=== PATIENT | female | born 1995 | race Hispanic/Latino ===

== ENCOUNTER 2025-01-11 16:28 | Emergency (ER) | payer BC ==
--- OUTSIDE RECORDS SUMMARY | 2025-01-11 16:31 | XMS REPORT | Continuity of Care Document ---
Author Name Unknown Address [address] [place] [address] [facility] Address [address] [place] [address] Care Team Providers Care Telephone Directory Deliverer Name Role Phone Pcp, Patient Does Not Have A Primary Care Physic merle Campaigns, Generic Provider Attending Clinician Unavailable Annabelle Tinoco Attending Clinician [phone] Unknown, Attending Attending Clinician Unavailab ANNABELLE Schofield Attending Clinician Unavailabl e Payers Payer Name Policy Type Policy Number Effective Date Expirati on Date Source Problems Condition Name Condition Details Condition Category Status Onset Date Resolution Date Last Treatment Date Treating Clinician Comments Source Candidiasi s of vagina Candidiasi s of Vagina Problem Active 16 00:00: 00 [facility] Dysuria Dysuria Problem Active 12-19 00:00: 00 [place] [facility] Acute urinary tract infection Acute Urinary Tract Infection Problem Active 12-19 00:00: 00 [facility] Constipati on Constipati on Problem Active 07-06 00:00: 00 [facility] Impacted cerumen in left ear Impacted Cerumen in Left Ear Problem Active 07 00:00: 00 [place] [facility] Essential hypertensi on Essential Hypertensi on Problem Active 06-10 00:00: 00 [facility] Dizziness Dizziness Problem Active - 00:00: 00 [place] [facility] Headache Headache Problem Active 06-10 00:00: 00 [facility] Acute sinusitis Acute Sinusitis Problem Active 2023-04 00:00: 00 [facility] Cough Cough Problem Active 2023-04 00:00: 00 [facility] Allergies, Adverse Reactions, Alerts Allergy Name Allergy Type Status Severity Reaction(s) Onset Date Inactive Date Treating Clinician Comments Source NO KNOWN ALLERGIE S Drug Class Active [facility] Social History Social Habit Start Date Stop Date Quantity Comments Source Sexual orientation U [facility] Sex assigned at 1995 00:00:00 1995 00:00:00 [facility] Smoking Status Start Date Stop Date Source Tobacco smoking consumption unknown [facility] Medications Ordered Medication Name Filled Medication Name Start Date Stop Date Current Medication? Ordering Clinician Indication Dosage Frequency Signature (SIG) Comments Components Source tamsulosin 0.4 mg capsule Take 1 capsule every day by oral route for 7 days. tamsulosin 0.4 mg capsule Take 1 capsule every day by oral route for 7 days. No 1capsul e(s) Q1D tamsulosin 0.4 mg capsule Take 1 capsule every day by oral route for 7 days. [facility] multivitami n Take 1 daily multivitami n Take 1 daily No multivitam in Take 1 daily [facility] losartan 100 mg tablet TAKE 1 TABLET BY MOUTH EVERY DAY FOR 30 DAYS losartan 100 mg tablet TAKE 1 TABLET BY MOUTH EVERY DAY FOR 30 DAYS No 1 Q1D losartan 100 mg tablet TAKE 1 TABLET BY MOUTH EVERY DAY FOR 30 DAYS [facility] albuterol sulfate HFA 90 mcg/actuati on aerosol inhaler INHALE 2 PUFFS EVERY 4 HOURS BY MOUTH albuterol sulfate HFA 90 mcg/actuati on aerosol inhaler INHALE 2 PUFFS EVERY 4 HOURS BY MOUTH No 2puff(s ) Q4H albuterol sulfate HFA 90 mcg/actuat ion aerosol inhaler INHALE 2 PUFFS EVERY 4 HOURS BY MOUTH [facility] Wegovy 1.7 mg/0.75 mL subcutaneou s pen injector Inject 1.7 mg by subcutaneou s route. Wegovy 1.7 mg/0.75 mL subcutaneou s pen injector Inject 1.7 mg by subcutaneou s route. No 1.7mg Wegovy 1.7 mg/0.75 mL subcutaneo us pen injector Inject 1.7 mg by subcutaneo us route. [facility] Immunizations Ordered Immunization Name Filled Immunization Name Date Status Comments Source Tdap Tdap Unknown Completed [facility] Vital Signs Vital Name Observation Time Observation Value Comments S ource BMI (Body Mass Index) 2025-01-10 00:00:00 36.8 kg/m2 [facility] BP Systolic 2025-01-10 00:00:00 151 mm[Hg] [facility] Body Weight 2025-01-10 00:00:00 4834 [oz_av] [facility] BP Diastolic 2025-01-10 00:00:00 82 mm[Hg] [facility] Height 2025-01-10 00:00:00 76 [in_i] [facility] BP Diastolic 2024-12-27 00:00:00 73 mm[Hg] [facility] BMI (Body Mass Index) 2024-12-27 00:00:00 37.5 kg/m2 [facility] Height 2024-12-27 00:00:00 76 [in_i] [facility] BP Systolic 2024-12-27 00:00:00 141 mm[Hg] [facility] Body Weight 2024-12-27 00:00:00 4934 [oz_av] [facility] Height 2024-12-19 00:00:00 76 [in_i] [facility] BP Diastolic 2024-12-19 00:00:00 78 mm[Hg] [facility] BP Systolic 2024-12-19 00:00:00 149 mm[Hg] [facility] Body Weight 2024-12-19 00:00:00 4898 [oz_av] [facility] BMI (Body Mass Index) 2024-12-19 00:00:00 37.3 kg/m2 [facility] BMI (Body Mass Index) 2024-12-16 00:00:00 37.3 kg/m2 [facility] Height 2024-12-16 00:00:00 76 [in_i] [facility] BP Diastolic 2024-12-16 00:00:00 80 mm[Hg] [facility] Body Weight 2024-12-16 00:00:00 4904 [oz_av] [facility] BP Systolic 2024-12-16 00:00:00 145 mm[Hg] [facility] BP Diastolic 2024-09-07 00:00:00 75 mm[Hg] [facility] Body Weight 2024-09-07 00:00:00 5013 [oz_av] [facility] BP Systolic 2024-09-07 00:00:00 166 mm[Hg] [facility] BMI (Body Mass Index) 2024-09-07 00:00:00 38.1 kg/m2 [facility] Height 2024-09-07 00:00:00 76 [in_i] [facility] Body Weight 2024-07-06 00:00:00 5184 [oz_av] [facility] BP Diastolic 2024-07-06 00:00:00 70 mm[Hg] [facility] BMI (Body Mass Index) 2024-07-06 00:00:00 39.4 kg/m2 [facility] BP Systolic 2024-07-06 00:00:00 141 mm[Hg] [facility] Height 2024-07-06 00:00:00 76 [in_i] [facility] Body Weight 2024-06-28 00:00:00 5168 [oz_av] [facility] BP Systolic 2024-06-28 00:00:00 131 mm[Hg] [facility] BP Diastolic 2024-06-28 00:00:00 71 mm[Hg] [facility] BMI (Body Mass Index) 2024-06-28 00:00:00 39.3 kg/m2 [facility] Height 2024-06-28 00:00:00 76 [in_i] [facility] BP Diastolic 2024-06-17 00:00:00 74 mm[Hg] [facility] BP Systolic 2024-06-17 00:00:00 141 mm[Hg] [facility] BMI (Body Mass Index) 2024-06-17 00:00:00 39.7 kg/m2 [facility] Height 2024-06-17 00:00:00 76 [in_i] [facility] Body Weight 2024-06-17 00:00:00 5222 [oz_av] [facility] Height 2024-06-10 00:00:00 76 [in_i] [facility] BMI (Body Mass Index) 2024-06-10 00:00:00 40.2 kg/m2 [facility] BP Diastolic 2024-06-10 00:00:00 83 mm[Hg] [facility] Body Weight 2024-06-10 00:00:00 5282 [oz_av] [facility] BP Systolic 2024-06-10 00:00:00 147 mm[Hg] [facility] Systolic blood pressure 2024-06-04 15:27:00 146 mm[Hg] [facility] Diastolic blood pressure 2024-06-04 15:27:00 84 mm[Hg] [facility] Heart rate 2024-06-04 15:26:00 73 /min [facility] Body temperature 2024-06-04 15:26:00 36.83 [place] [facility] Respiratory rate 2024-06-04 15:26:00 16 /min [facility] Body height 2024-06-04 15:26:00 195.6 cm [facility] Body weight 2024-06-04 15:26:00 150.821 kg [facility] BMI 2024-06-04 15:26:00 39.43 kg/m2 [facility] Oxygen saturation in Arterial blood by Pulse oximetry 2024-06-04 15:26:00 100 /min [facility] BP Diastolic 2024-04-07 00:00:00 83 mm[Hg] [facility] Height 2024-04-07 00:00:00 76 [in_i] [facility] BP Systolic 2024-04-07 00:00:00 146 mm[Hg] [facility] BMI (Body Mass Index) 2024-04-07 00:00:00 38.7 kg/m2 [facility] Body Weight 2024-04-07 00:00:00 5092 [oz_av] [facility] Procedures Procedure Date / Time Performed Performing Clinicia n Source CT, abdomen + pelvis, w/o contrast 2025-01-10 00:00:00 [facility] POCT MOLECULAR FLU 2024-06-04 15:38:00 Unknown, Attend ing [facility] POCT MOLECULAR STREP 2024-06-04 15:33:00 Unknown, Atte juan diegoing [facility] POCT SARS-COV-2 ANTIGEN (BINAX NOW) 2024-06-04 00:00:00 Annabelle Reyna [facility] Section 2016-02-19 00:00:00 [facility] Section 2012-09-12 00:00:00 [facility] Ligation of Bilateral Fallopian Tubes [facility] Encounters Start Date/Time End Date/Time Encounter Type Admission Type Attending Clinicians Care Facility Care Department Encounter ID Source 2025-01-10 00:00:00 2025-01-10 00:00:00 HOUSTON Galicia-C: [address] [place] [address] , Ph. [facility] [id number] [facility] 2024-12-27 00:00:00 2024-12-27 00:00:00 RAMON Cardoso C: [address] [place] [address] , Ph. [facility] 0916 [facility] 2024-12-19 00:00:00 2024-12-19 00:00:00 Daksha Mojica APRN-WAISTLINE JOINER OVERLOCK-B C: [address] [place] [address] , Ph. [facility] 0908 [facility] 2024-12-16 00:00:00 2024-12-16 00:00:00 SAMANTA GarcíaP-C: [address] [place] [address] , Ph. [facility] 0905 [facility] 2024-09-07 00:00:00 2024-09-07 00:00:00 Morena Pritchard, DANAE, PROVIDER CONTRACTING CONSULTANT, WAISTLINE JOINER OVERLOCK-C: [address], [address], [place] [address] , Ph. [facility], Morena Pritchard, DANAE, WAISTLINE JOINER OVERLOCK-C [address] [facility] 2024-07-06 00:00:00 2024-07-06 00:00:00 Daksha Mojica APRN-WAISTLINE JOINER OVERLOCK-B C: [address] [place] [address] , Ph. [facility] 0326 [facility] 2024-06-28 00:00:00 2024-06-28 00:00:00 Daksha Mojica APRN-WAISTLINE JOINER OVERLOCK-B C: [address] [place] [address] , Ph. [facility] 0318 [facility] 2024-06-17 00:00:00 2024-06-17 00:00:00 ELBA Cardoso-Corina C: [address] [place] [address] , Ph. [facility] [address] 0307 [facility] 2024-06-15 00:00:00 2024-06-15 11:45:01 Letter (Out) Campaigns, Generic Provider Campaigns, Generic Provider [facility] (PATRICIA) ..[id number] [facility] 2024-06-10 00:00:00 2024-06-10 00:00:00 RAFAEL CardosoWAISTLINE JOINER OVERLOCK-B C: [address] [place] [address] , Ph. [facility] [address] 0228 [facility] 2024-06-04 10:20:00 2024-06-04 10:40:00 Urgent Care Annabelle Reyna Unknown, Attending [facility] ..[id number] [facility] 2024-06-04 10:20:00 2024-06-04 10:20:00 Outpatient R ANNABELLE REYNA [facility] [id number] [facility] 2024-04-07 00:00:00 2024-04-07 00:00:00 RAFAEL CardosoWAISTLINE JOINER OVERLOCK-B C: [address] [place] [address] , Ph. [facility] [address] 1225 [facility] Results Test Description Test Time Test Comments Results Result Co mments Source [facility] [id number] 13:20:00* Test Item Value Reference Range Interpretation Comme nts Leukocytes (test code = Leukocytes) Trace Nitrite (test code = Nitrite) negative Protein (test code = Protein) Negative pH (test code = pH) 6.0 Blood (test code = Blood) Negative Specific [place] (test code = Specific [place]) 1.010 Ketone (test code = Ketone) Negative Glucose (test code = Glucose) Negative Appearance (test code = Appearance) Cloudy Color (test code = Color) Pale Yellow [facility], [id number] 08:57:00* Test Item Value Reference Range Interpretation Comme nts Leukocytes (test code = Leukocytes) Small Nitrite (test code = Nitrite) negative Protein (test code = Protein) Trace pH (test code = pH) 5.5 Blood (test code = Blood) Non-Hemolyzed: Trace Specific [place] (test code = Specific [place]) 1.020 Ketone (test code = Ketone) Negative Glucose (test code = Glucose) Negative Appearance (test code = Appearance) Cloudy Color (test code = Color) Yellow [facility] ([facility]-19[facility] Ag [Presence] in Respiratory system specimen by Rapid [id number] 11:32:03* Test Item Value Reference Range Interpretation Comme nts SARS CoV 2 (test code = SARS CoV 2) negative [facility] [id number] 15:49:54* Test Item Value Reference Range Interpretation Comme nts POCT Molecular FluA (test co de = 65908-4) Negative Negative POCT Molecular FluB (test co de = 34511-3) Negative Negative Lab Interpretation (test cod e = 44338-1) Normal [facility] SARS-COV-2 ANTIGEN (BINAX NOW)2024-06-04 15:42:00* Test Item Value Reference Range Interpretation Comme nts POCT SARS-COV-2 ANTIGEN (test code = 01751-5) Not Detected Not Detected, See Comment On board controls acceptable with C Line (test code = 3574) Yes [facility] [id number] 15:41:00* Test Item Value Reference Range Interpretation Comme nts POCT Molecular Strep (test c ode = 75955-7) Negative Negative Lab Interpretation (test cod e = 81473-2) Normal [facility]
[2025-01-11] MEDS ORDERED: NA CHLORIDE 0.9% 1,000 ML ONE (17:22)
[2025-01-11] MEDS ORDERED: ONDANSETRON 4 MG/2 ML VIAL ONE (17:22)
[2025-01-11] MEDS ORDERED: MORPHINE 4 MG/ML SYR ONE (17:22)
[2025-01-11 17:27] LABS: Absolute Lymphocytes (CBC) 2.8 K/uL (0.7-4.9); Hematocrit 36.8 % (36.0-45.0); Hemoglobin 12.4 g/dL (12.0-15.0); MCH 28.9 pg (27.0-35.0); MCHC 33.8 g/dL (32.0-36.0); MCV 85.3 fL (80-100); MPV 7.1 fL (7.6-11.3); Nucleated RBC Absolute Count 0.0 (0-0); Nucleated Red Blood Cells % 0.1 % (0-0); RBC Red Blood Cell Count 4.31 M/uL (3.86-4.86); White Blood Count 12.80 thou/uL (4.3-10.9)
--- NOTE | 2025-01-11 17:37 | RAD REPORT ---
EXAMINATION: US Abdomen Exam Limited CLINICAL HISTORY: [facility] MAIN N ABD PAIN Bed Name: [id number] COMPARISON: None. TECHNIQUE: Limited upper abdominal grayscale and color flow sonographic images. FINDINGS: Gallbladder: Large gallstone measuring 2.5 cm with shadowing. No wall thickening or pericholecystic f luid. Negative sonographic Shanks sign. Bile ducts: No intrahepatic or extrahepatic biliary dilatation. Common bile duct measures 3 mm. Liver: Visualized portions of the liver demonstrate normal echogenicity with no suspicious findings. Fluid: No ascites. IMPRESSION: Cholelithiasis without sonographic evidence of acute cholecystitis.
[2025-01-11 17:44] LABS: ALT/SGPT 16 U/L (13-56); Albumin 3.6 g/dL (3.4-5.0); Albumin/Globulin Ratio 0.9 (1.1-1.8); Alkaline Phosphatase 57 U/L (45-117); Anion Gap 8.4 mEq/L (5.0-15.0); BUN Blood Urea Nitrogen 7 mg/dL (7-18); Globulin 4.0 g/dL (2.3-3.5); Glucose Level 88 mg/dL (74-106); Lipase 26 U/L (13-75); Potassium 3.4 mEq/L (3.5-5.1)
[2025-01-11 17:45] LABS: AST/SGOT < 10 U/L (15-37)
--- NOTE | 2025-01-11 18:58 | RAD REPORT ---
EXAMINATION: CT Abdomen Pelvis W Contrast CLINICAL INDICATION: Female, 29 years old. RLQ pain;Abd pain TECHNIQUE: CT abdomen and pelvis was performed, after the administration of IV contrast, as per [facility] protocol. Axial, sagittal and coronal reconstructions were obtained. One or more of the following dose reduction techniques were used: Automated exposure control, adjustment of the mA and k V according to patient size, and iterative reconstruction. Unless otherwise specified, incidental findings do not require dedicated imaging follow-up. COMPARISON: No prior exam. FINDINGS: LOWER CHEST: The visualized lung bases are clear. LIVER: Normal in size and contour. No focal lesion. BILIARY SYSTEM: Cholesterol containing gallstone along the body measuring 1.8 cm. SPLEEN: Normal size. No focal lesion. PANCREAS: No mass, ductal dilation, or maria elena-pancreatic fluid. ADRENALS: Normal; no mass. KIDNEYS: Normal size and contour. No hydronephrosis. Bilateral ureteric urothelial enhancement and fa t stranding throughout most of the ureters URINARY BLADDER: Unremarkable. GASTROINTESTINAL TRACT: No evidence of free air, significant intra-abdominal free fluid, bowel obstru ction or abscess. APPENDIX: Normal appendix. LYMPH NODES: No lymphadenopathy. MUSCULOSKELETAL: No acute or suspicious osseous abnormality. ADDITIONAL FINDINGS: None. IMPRESSION: Bilateral urothelial enhancement along the ureters and periureteric fat stranding, without hydrourete ronephrosis or evidence of obstruction. Findings may relate to ascending infection. Please correlate clinically with urinalysis results.
[2025-01-11] MEDS ORDERED: DICYCLOMINE HCL 10 MG CAP ONE (19:39)
[2025-01-11 20:13] LABS: Sqamous Epithelial <5 /HPF (None Seen); Urine Crystals Unidentified Few /HPF (None Seen); Urine Culture Reflex Order REFLEXED; Urine Microscopic Reflex YN ORDER UMIC; Urine Yeast (Budding) Many /HPF (None Seen)
--- NOTE | 2025-01-11 21:30 | EDPHYS ---
Physician Documentation [facility] Name: Shannan Joseph Age: 29 yrs Sex: Female : 1995 Arrival Date: 01/11/2025 Time: 16:28 Bed 15 Private MD: ED Physician Andrea Hagan HPI: 01/11 18:55 This 29 yrs old Female presents to ER via Ambulatory with complaints of ms3 Abdominal Pain. 18:55 29-year-old female with past medical history of hypertension presents to the emergency ms3 department for right sided pain that has been ongoing for 3 weeks. Patient states she had a CAT scan performed yesterday that showed gallstones. Patient was instructed to follow-up with Dr. Corea. Patient states her pain is a 9/10 located on the right side of her abdomen. Patient endorses nausea. Patient denies fevers, chills, vomiting.. 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 - Infectious Disease History:: Denies. - Social history:: Smoking status: Patient denies any tobacco usage or history of. ROS: 18:55 Constitutional: Negative for fever, and chills. Cardiovascular: Negative for chest ms3 pain, and palpitations. Respiratory: Negative for shortness of breath, cough, wheezing, and pleuritic chest pain, 18:55 MS/Extremity: Negative for injury and deformity, Skin: Negative for injury, rash, and discoloration, 18:55 Abdomen/GI: Positive for abdominal pain, nausea, Negative for vomiting, diarrhea, Exam: 18:55 Constitutional: This is a well developed, well nourished patient who is awake, alert, ms3 and in no acute distress. Cardiovascular: Regular rate and rhythm with a normal S1 and S2. No gallops, murmurs, or rubs. Normal PMI, no JVD. No pulse deficits. Respiratory: Lungs have equal breath sounds bilaterally, clear to auscultation and percussion. No rales, rhonchi or wheezes noted. No increased work of breathing, no retractions or nasal flaring. 18:55 Abdomen/GI: Inspection: abdomen appears normal, Bowel sounds: normal, Palpation: moderate abdominal tenderness, in the right upper quadrant and right lower quadrant, Vital Signs: 16:46 BP 151 / 85; Pulse 84; Resp 17; Temp 98.4; Pulse Ox 100% ; Weight 136.08 kg; Height 6 dd2 ft. 5 in. ; Pain 9/10; 18:34 BP 114 / 71; Pulse 78; Resp 18; Pulse Ox 100% on R/A; mb9 20:14 BP 147 / 74; Pulse 79; Resp 16; Pulse Ox 99% on R/A; cc6 21:45 BP 149 / 68; Pulse 78; Resp 16; Pulse Ox 99% on R/A; cc6 16:46 Body Mass Index 35.57 (136.08 kg, 195.58 cm) dd2 16:46 Pain Scale: Adult dd2 MDM: 17:00 Medical Screening Exam initiated ms3 18:55 Differential diagnosis: appendicitis, cholecystitis, Cholelithiasis. ms3 19:34 Transition of care: After a detail discussion of the patient's case, care is ms3 transferred to [facility]. 20:10 Data reviewed: vital signs, nurses notes, lab test result(s). ED course: I took over tt7 care of this patient at shift change at 1900, this is a 29-year-old female with right-sided abdominal pain who has a known gallstone and upcoming follow-up appointment with general surgery, came in for worsening pain, overall her laboratory studies are reassuring, abdominal ultrasound without findings concerning for cholecystitis, symptoms likely due to biliary colic, she also had CT imaging of the abdomen/pelvis which demonstrated some findings along the ureters which could represent possible a ascending urinary infection, pending urinalysis results at this time, I administered oral dicyclomine for patient's symptoms of biliary colic. 21:34 ED course: Urinalysis is consistent with infection, I reassessed the patient, feeling tt7 improved but still having some lower back discomfort, will administer parenteral opioid, treat patient's urinary infection with 1 g of IV ceftriaxone, and discharged with course of oral ciprofloxacin, urine culture is pending and patient has upcoming follow-up appointment with general surgeon Dr. Corea regarding her gallstone tomorrow. After completion of the patient's emergency department evaluation, I do not suspect a life-threatening or disabling process. Patient is medically stable and not in need of emergent medical intervention. I had a detailed discussion with the patient regarding the historical points, exam findings, emergency department evaluation, diagnostic results, and the discharge diagnosis. I instructed the patient on outpatient management of their condition. I discussed the need for outpatient follow-up with a primary care physician. I informed the patient on return precautions, including the need to return to the ED if symptoms do not improve, worsen, or if there are any questions or concerns that arise at home. The patient was discharged in stable condition. 01/11 16:50 Order name: CBC with Diff; Complete Time: 17:53 ms3 01/11 16:50 Order name: CMP; Complete Time: 17:53 ms3 01/11 16:50 Order name: Lipase; Complete Time: 17:53 ms3 01/11 16:50 Order name: Test, Urine; Complete Time: 18:18 ms3 01/11 19:01 Order name: UA Rfx Joseph Cult if indicated; Complete Time: 21:25 ms3 01/11 20:18 Order name: Urine Culture EDMS 01/11 16:50 Order name: US Abdomen Limited; Complete Time: 17:39 ms3 01/11 17:58 Order name: CT Abd/Pelvis - IV Contrast Only; Complete Time: 19:00 ms3 01/11 16:50 Order name: IV Saline Lock; Complete Time: 17:20 ms3 01/11 16:50 Order name: Labs collected and sent; Complete Time: 17:20 ms3 Administered Medications: 17:20 Drug: Ondansetron IVP 4 mg IVP once; over 2 minutes Route: IVP; Site: right forearm; mb9 18:35 Follow up: Response: No adverse reaction mb9 17:20 Drug: NS 0.9% IV 1000 ml IV at 1 bolus Per protocol; to be given as a bolus over 60 mb9 minutes Route: IV; Rate: 1 bolus; Site: right forearm; 18:35 Follow up: Response: No adverse reaction; IV Status: Completed infusion mb9 17:25 Drug: morphine IVP or IV 4 mg IVP once over 4 mins Route: IVP; Infused Over: 4 mins; mb9 Site: right forearm; 18:35 Follow up: Response: No adverse reaction mb9 19:46 Drug: Dicyclomine PO 20 mg PO once Route: PO; cc6 21:40 Follow up: Response: No adverse reaction; Pain is decreased cc6 21:59 Drug: HYDROmorphone IVP 0.5 mg IVP once Route: IVP; Site: right wrist; cc6 22:03 Follow up: Response: No adverse reaction; Pain is decreased cc6 22:00 Drug: Rocephin IV 1 grams IV at bolus once; Given slow IV push per pharmacy cc6 instructions Route: IV; Rate: bolus; Site: right wrist; 22:03 Follow up: IV Status: Completed infusion cc6 22:03 Follow up: Response: No adverse reaction cc6 Disposition: 21:35 Co-signature as Attending Physician, Andrea Hagan DO. tt7 Disposition Summary: 01/11/25 21:29 Discharge Ordered Notes: Location: Home tt7 Problem: new tt7 Symptoms: have improved tt7 Condition: Stable tt7 Diagnosis - Pyelonephritis acute tt7 - Other cholelithiasis without obstruction tt7 Followup: tt7 - With: Emergency Department - When: As needed - Reason: Followup: tt7 - With: Private Physician - When: 1 - 2 days - Reason: Recheck today's complaints, Re-evaluation by your physician Discharge Instructions: - Discharge Summary Sheet tt7 - Pyelonephritis, Adult, [id number] tt7 - Cholelithiasis, [id number] tt7 Forms: - Work release form vc1 - Medication Reconciliation Form tt7 - Antibiotic Education tt7 - Prescription Opioid Use tt7 - Patient Portal Instructions tt7 - Leadership Thank You Letter tt7 Prescriptions: - Cipro 500 mg Oral Tablet - take 1 tablet ORAL route every 12 hours for 7 days; 14 tablet; Refills: 0, tt7 Product Selection Permitted Signatures: Dispatcher [employer] EDNV Jeffy Esteves DO DO ms3 Ina Tran RN RN mb9 Indu Arce RN RN cc6 ALIS ALMANZA RN RN dd2 Andrea Hagan DO DO tt7 Corrections: (The following items were deleted from the chart) 17:59 17:59 Abdomen Pelvis W Con+[id number].BRZ ordered. EDMS EDMS 20:20 20:10 ED course: I took over care of this patient at shift change at 1900, this is a tt7 29-year-old female with right-sided abdominal pain who has a known gallstone and upcoming follow-up appointment with general surgery, came in for worsening pain, overall her laboratory studies are reassuring, abdominal ultrasound without findings concerning for cholecystitis, symptoms likely due to biliary colic, she also had CT imaging of the abdomen/pelvis which demonstrated some findings. tt7
--- NOTE | 2025-01-11 21:30 | ER ---
Nurse's Notes [facility] Name: Shannan Joseph Age: 29 yrs Sex: Female : 1995 Arrival Date: 01/11/2025 Time: 16:28 Bed 15 Private MD: Diagnosis: Pyelonephritis acute;Other cholelithiasis without obstruction Presentation: 01/11 16:46 Chief complaint: Patient states: SHE WENT TO [facility] ER AND DX WITH GALLSTONES. APPT dd2 WITH DR. MADRIGAL TOMORROW BUT PAIN IS WORSE. REPORTS SHE WAS ADVISED TO COME HERE IF PAIN AND SYMPTOMS WORSENED. Coronavirus screen: At this time, the client does not indicate any symptoms associated with coronavirus-19. Ebola Screen: No symptoms or risks identified at this time. Initial Sepsis Screen: Does the patient meet any 2 criteria? No. Patient's initial sepsis screen is negative. Does the patient have a suspected source of infection? No. Patient's initial sepsis screen is negative. Risk Assessment: Do you want to hurt yourself or someone else? Patient reports no desire to harm self or others. Onset of symptoms is unknown. 16:46 Method Of Arrival: Ambulatory dd2 16:46 Acuity: THEO 3 dd2 Triage Assessment: 16:48 General: Appears in no apparent distress. uncomfortable, Behavior is calm, cooperative, dd2 appropriate for age. Pain: Complains of pain in right upper quadrant and right lower quadrant Pain currently is 9 out of 10 on a pain scale. GI: Reports lower abdominal pain, upper abdominal pain, cramping, nausea. 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 - Infectious Disease History:: Denies. - Social history:: Smoking status: Patient denies any tobacco usage or history of. Screenin:19 [facility] ED Fall Risk Assessment (Adult) History of falling in the last 3 months, mb9 including since admission No falls in past 3 months (0 pts) Confusion or Disorientation No (0 pts) Intoxicated or Sedated No (0 pts) Impaired Gait No (0 pts) Mobility Assist Device Used No (0 pt) Altered Elimination No (0 pt) Score/Fall Risk Level 0 - 2 = Low Risk Oriented to surroundings, Maintained a safe environment, Educated pt \T\ family on fall prevention, incl call for assistance when getting out of bed. Abuse screen: Denies threats or abuse. Nutritional screening: No deficits noted. Tuberculosis screening: No symptoms or risk factors identified. Assessment: 17:18 General: Appears uncomfortable, Behavior is calm, cooperative. Pain: Complains of pain mb9 in back and abdomen Pain currently is 9 out of 10 on a pain scale. Quality of pain is described as aching, Is continuous. Neuro: Gomez Agitation-Sedation Scale (RASS): 0 - Alert and Calm Level of Consciousness is awake, alert, obeys commands, Oriented to person, place, time, situation, Appropriate for age. Cardiovascular: Patient's skin is warm and dry. Respiratory: Airway is patent Respiratory effort is even, unlabored, Respiratory pattern is regular, symmetrical. GI: Abdomen is round non-distended, Bowel sounds present X 4 quads. Abd is soft Abdomen is tender to palpation X 4 quads. Reports nausea. : Reports burning with urination, cramping. EENT: No signs and/or symptoms were reported regarding the EENT system. Derm: Skin is pink, warm \T\ dry. Musculoskeletal: Range of motion: intact in all extremities. 19:00 Reassessment: Report received from ALEC Rogers. cc6 19:30 General: Appears in no apparent distress. uncomfortable. Pain: Complains of pain in cc6 back, right upper quadrant and right lower quadrant Pain currently is 9 out of 10 on a pain scale. Quality of pain is described as aching, Is continuous. Neuro: Level of Consciousness is awake, alert, obeys commands, Oriented to person, place, time, situation. Cardiovascular: Patient's skin is warm and dry. Respiratory: Airway is patent Respiratory effort is even, unlabored, Respiratory pattern is regular, symmetrical. GI: Abdomen is round non-distended, Bowel sounds present X 4 quads. Abd is soft Abdomen is tender to palpation X 4 quads. Reports lower abdominal pain, upper abdominal pain, nausea, States the Morphine helped really only made her feel a little weird but didn't do much to help with the pain. : Reports burning with urination, cramping. EENT: No signs and/or symptoms were reported regarding the EENT system. Derm: No signs and/or symptoms reported regarding the dermatologic system. Musculoskeletal: Circulation, motion, and sensation intact. Range of motion: intact in all extremities. 20:14 Reassessment: No changes from previously documented assessment. Patient and/or family cc6 updated on plan of care and expected duration. Pain level reassessed. Patient is alert, oriented x 3, equal unlabored respirations, skin warm/dry/pink. 21:45 Reassessment: Patient and/or family updated on plan of care and expected duration. Pain cc6 level reassessed. Patient is alert, oriented x 3, equal unlabored respirations, skin warm/dry/pink. Vital Signs: 16:46 BP 151 / 85; Pulse 84; Resp 17; Temp 98.4; Pulse Ox 100% ; Weight 136.08 kg; Height 6 dd2 ft. 5 in. ; Pain 9/10; 18:34 BP 114 / 71; Pulse 78; Resp 18; Pulse Ox 100% on R/A; mb9 20:14 BP 147 / 74; Pulse 79; Resp 16; Pulse Ox 99% on R/A; cc6 21:45 BP 149 / 68; Pulse 78; Resp 16; Pulse Ox 99% on R/A; cc6 16:46 Body Mass Index 35.57 (136.08 kg, 195.58 cm) dd2 16:46 Pain Scale: Adult dd2 ED Course: 16:30 Patient arrived in ED. im 16:30 Jeffy Esteves DO is Attending Physician. ms3 16:48 Triage completed. dd2 16:48 Arm band placed on left wrist. dd2 17:10 Ina Tran, ALEC is Primary Nurse. mb9 17:18 Initial lab(s) drawn, by wi, sent to lab. Inserted saline lock: 20 gauge in right mb9 forearm, using aseptic technique. Blood collected. Flushed with 10 mL NS. 17:20 Bed in low position. Call light in reach. Side rails up X 1. Provided Education on: mb9 press call light if needing anything. Client placed on continuous cardiac and pulse oximetry monitoring. NIBP monitoring applied. 17:20 No provider procedures requiring assistance completed. mb9 17:20 CBC with Diff Sent. mb9 17:20 CMP Sent. mb9 17:20 Lipase Sent. mb9 17:24 US Abdomen Limited In Process Unspecified. EDMS 18:35 CT Abd/Pelvis - IV Contrast Only In Process Unspecified. EDMS 19:31 Attending Physician role handed off by Jeffy Esteves DO tt7 19:31 Andrea Hagan DO is Attending Physician. tt7 22:05 IV discontinued, intact, bleeding controlled, No redness/swelling at site. Pressure cc6 dressing applied. Administered Medications: 17:20 Drug: Ondansetron IVP 4 mg IVP once; over 2 minutes Route: IVP; Site: right forearm; mb9 18:35 Follow up: Response: No adverse reaction mb9 17:20 Drug: NS 0.9% IV 1000 ml IV at 1 bolus Per protocol; to be given as a bolus over 60 mb9 minutes Route: IV; Rate: 1 bolus; Site: right forearm; 18:35 Follow up: Response: No adverse reaction; IV Status: Completed infusion mb9 17:25 Drug: morphine IVP or IV 4 mg IVP once over 4 mins Route: IVP; Infused Over: 4 mins; mb9 Site: right forearm; 18:35 Follow up: Response: No adverse reaction mb9 19:46 Drug: Dicyclomine PO 20 mg PO once Route: PO; cc6 21:40 Follow up: Response: No adverse reaction; Pain is decreased cc6 21:59 Drug: HYDROmorphone IVP 0.5 mg IVP once Route: IVP; Site: right wrist; cc6 22:03 Follow up: Response: No adverse reaction; Pain is decreased cc6 22:00 Drug: Rocephin IV 1 grams IV at bolus once; Given slow IV push per pharmacy cc6 instructions Route: IV; Rate: bolus; Site: right wrist; 22:03 Follow up: IV Status: Completed infusion cc6 22:03 Follow up: Response: No adverse reaction cc6 Medication: 17:20 VIS not applicable for this client. mb9 Outcome: 21:29 Discharge ordered by . tt7 22:05 Discharged to home ambulatory, cc6 22:05 Condition: stable 22:05 Discharge instructions given to patient, Instructed on discharge instructions, follow up and referral plans. medication usage, Demonstrated understanding of instructions, follow-up care, medications, Prescriptions given X 1, 22:05 Patient left the ED. cc6 Addendum: 01/15/2025 18:59 Addendum: Culture Results: Positive urine culture. Bacteria is resistant to, has i w intermediate sensitivity, or is not tested against prescribed antibiotics. Report given to LIT for further evaluation and then to bakery team leader for follow up with patient. Phone call Attempt #1 pt still having UTI symptoms, called in to [facility] , left voice mail. Signatures: Dispatcher [employer] EDSharlene Avila, RN RN iw Jeffy Esteves, DO DO ms3 Ina Tran, RN RN mb9 Anita Weiner Cassandra RN RN cc6 ALIS ALMANZA RN RN dd2 Andrea Hagan, DO DO tt7
[2025-01-11] MEDS ORDERED: CEFTRIAXONE 1000 MG/VIAL ONE (21:47)
[2025-01-11] MEDS ORDERED: HYDROMORPHONE HCL 0.5 MG/0.5 ML INJ ONE (21:47)
[2025-01-11 22:20] VITALS: TEMP 98.4
[2025-01-11 22:23] VITALS: O2SAT 99
[2025-01-11 22:25] VITALS: BP 149/68
== END 2025-01-11 22:05 | disposition home or self-care (01) ==
LOC: ER 16:28
DX: N10 Acute pyelonephritis (principal); K80.80 Other cholelithiasis without obstruction; I10 Essential (primary) hypertension
CPT/HCPCS: 87088; 85025; 81001; 87086; 36415; 81025; 87077; 87186; 83690; 80053; 74177; 76705; 99284; Q9967; J1171; J2405; J7030; J0696

== ENCOUNTER 2025-01-27 09:17 | Emergency (ER) | payer BC ==
[2025-01-27] MEDS ORDERED: NA CHLORIDE 0.9% 1,000 ML ONE (09:56)
[2025-01-27] MEDS ORDERED: MORPHINE 4 MG/ML SYR ONE (09:56)
[2025-01-27] MEDS ORDERED: ONDANSETRON 4 MG/2 ML VIAL ONE (09:56)
[2025-01-27 09:57] LABS: Absolute Lymphocytes (CBC) 2.5 K/uL (0.7-4.9); Hematocrit 39.8 % (36.0-45.0); Hemoglobin 13.0 g/dL (12.0-15.0); MCH 28.4 pg (27.0-35.0); MCHC 32.7 g/dL (32.0-36.0); MCV 86.7 fL (80-100); MPV 7.4 fL (7.6-11.3); Nucleated RBC Absolute Count 0.0 (0-0); Nucleated Red Blood Cells % 0.1 % (0-0); RBC Red Blood Cell Count 4.59 M/uL (3.86-4.86); White Blood Count 6.90 thou/uL (4.3-10.9)
[2025-01-27 10:20] LABS: ALT/SGPT 23 U/L (13-56); Albumin 3.6 g/dL (3.4-5.0); Albumin/Globulin Ratio 0.9 (1.1-1.8); Alkaline Phosphatase 62 U/L (45-117); Anion Gap 8.8 mEq/L (5.0-15.0); BUN Blood Urea Nitrogen 8 mg/dL (7-18); Globulin 4.1 g/dL (2.3-3.5); Glucose Level 88 mg/dL (74-106); Lipase 29 U/L (13-75); Potassium 3.8 mEq/L (3.5-5.1)
--- NOTE | 2025-01-27 10:22 | RAD REPORT ---
EXAM: Abdominal exam Limited ultrasound CLINICAL HISTORY: Abdominal pain COMPARISON: January 11, 2025 FINDINGS: Several gallstones. Largest 1.8 cm. Gallbladder wall not thickened. Biliary tree normal caliber IMPRESSION: Cholelithiasis
[2025-01-27 10:34] LABS: AST/SGOT < 10 U/L (15-37)
--- NOTE | 2025-01-27 11:12 | EDPHYS ---
Physician Documentation [facility] Name: Shannan Joseph Age: 29 yrs Sex: Female : 1995 Arrival Date: 01/27/2025 Time: 09:17 Bed 18 Private MD: ED Physician Eric Weiss HPI: 01/27 09:44 This 29 yrs old Female presents to ER via Unassigned with complaints of RUQ dr5 Epigastric Pain. 09:44 The patient presents with abdominal pain in the right upper quadrant. Onset: The dr5 symptoms/episode began/occurred this morning. Patient is a 29-year-old female coming in with epigastric abdominal pain that's been going for the past two weeks that worsened this morning. Patient's last meal with last night around 1900. Patient states that she has surgery scheduled with Dr. Corea on Thursday. Patient states that she called Dr. Brewer this morning and was recommended come to the ER.. 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 - Infectious Disease History:: Denies. - Social history:: Smoking status: Patient denies any tobacco usage or history of. Patient uses street drugs, marijuana. ROS: 09:44 Constitutional: as per hpi dr5 Exam: 09:44 Constitutional: This is a well developed, well nourished patient who is awake, alert, dr5 and in no acute distress. Head/Face: Normocephalic, atraumatic. ENT: Nares patent. No nasal discharge, no septal abnormalities noted. Tympanic membranes are normal and external auditory canals are clear. Oropharynx with no redness, swelling, or masses, exudates, or evidence of obstruction, uvula midline. Mucous membranes moist. Neck: Trachea midline, no thyromegaly or masses palpated, and no cervical lymphadenopathy. Supple, full range of motion without nuchal rigidity, or vertebral point tenderness. No Meningismus. Chest/axilla: Normal chest wall appearance and motion. Nontender with no deformity. No lesions are appreciated. Cardiovascular: Regular rate and rhythm with a normal S1 and S2. Normal PMI, no JVD. No pulse deficits. Respiratory: Lungs have equal breath sounds bilaterally, clear to auscultation. No rales, rhonchi or wheezes noted. No increased work of breathing, no retractions or nasal flaring. Back: No spinal tenderness. No costovertebral tenderness. Full range of motion. Skin: Warm, dry with normal turgor. Normal color with no rashes, no lesions, and no evidence of cellulitis. MS/ Extremity: Pulses equal, no cyanosis. Neurovascular intact. Full, normal range of motion. Neuro: Awake and alert, GCS 15, oriented to person, place, time, and situation. Cranial nerves II-XII grossly intact. Motor strength 5/5 in all extremities. Sensory grossly intact. Cerebellar exam normal. Normal gait. 09:44 Abdomen/GI: Inspection: abdomen appears normal, Bowel sounds: normal, Palpation: severe abdominal tenderness, in the epigastric area, Vital Signs: 09:43 BP 144 / 77; Pulse 72; Resp 20; Pulse Ox 100% ; Weight 133.81 kg; Height 6 ft. 4 in. ; kb3 Pain 9/10; 11:23 BP 143 / 76; Pulse 75; Resp 17; Temp 98.3; Pulse Ox 100% on R/A; Pain 3/10; zm 09:43 Body Mass Index 35.91 (133.81 kg, 193.04 cm) kb3 09:43 Pain Scale: Adult kb3 11:23 Pain Scale: Adult zm [place] Coma Score: 11:23 Eye Response: spontaneous(4). Motor Response: obeys commands(6). Verbal Response: zm oriented(5). Total: 15. MDM: 09:20 Medical Screening Exam initiated dr5 12:31 Differential diagnosis: viral Infection, bacterial infection, gastroenteritis, dr5 cholecystitis, Cholelithiasis, gastritis, gastroesophageal reflux disease. Data reviewed: vital signs, nurses notes, lab test result(s), amylase and lipase, CBC, white blood cell count, hemoglobin, hematocrit, platelets, electrolytes, sodium, potassium, chloride, serum bicarbonate, BUN, creatinine, serum glucose, EKG, radiologic studies, ultrasound. Consideration of Admission/Observation Escalation of care including admission/observation considered. Escalation considered patient had elevated LFTs or cholecystitis. Management of patient was discussed with the following: Sas Programmer: Spoke with Dr. Corea. Recommended p.o. challenge and pain control. Patient has cholecystectomy surgery scheduled for Thursday at 7 AM. Recommended bland food and liquid diet until then.. I considered the following discharge prescriptions or medication management in the emergency department I discussed and recommended Over The Counter medications, Medications were administered in the Emergency Department. See MAR. Historians other than the Patient: Spouse/Significant Other: . Care significantly affected by the following chronic conditions: Hypertension. Care significantly affected by the following Social Determinants of Health: Poor access to healthcare and/or lack of insurance, Poor access to transportation, Problems related to employment. Counseling: I had a detailed discussion with the patient and/or guardian regarding the historical points, exam findings, and any diagnostic results supporting the discharge/admit diagnosis, the presence of at least one elevated blood pressure reading (>120/80) during this emergency department visit, lab results, radiology results, the need for outpatient follow up, for definitive care, a general surgeon, to return to the emergency department if symptoms worsen or persist or if there are any questions or concerns that arise at home. Medication response: morphine relieved the patient's pain. Symptoms have resolved, Dilaudid. Response to treatment: the patient's symptoms have resolved after treatment, the patient's condition has returned to base line, the patient is now symptom free. Special discussion: I discussed with the patient/guardian in detail that at this point there is no indication for admission to the hospital. It is understood, however, that if the symptoms persist or worsen the patient needs to return immediately for re-evaluation. Based on the history and exam findings, there is no indication for further emergent testing or inpatient evaluation. I discussed with the patient/guardian the need to see the general surgeon for further evaluation of the symptoms. ED course: Patient's pain is much better. All labs and ultrasound revealed cholelithiasis without cholecystitis. LFTs normal. Will have patient follow-up with Dr. Corea on Thursday. Patient is agreeable plan. Recommended patient not have state fair food anymore. All questions were answered. Strict ER precautions given. 01/27 09:41 Order name: CBC with Diff; Complete Time: 10:01 dr5 01/27 09:41 Order name: CMP; Complete Time: 10:45 dr5 10/17 09:41 Order name: Lipase; Complete Time: 10:45 dr5 01/27 09:48 Order name: Troponin High Sensitivity; Complete Time: 10:45 dr5 01/27 09:44 Order name: US Abdomen Limited: RUQ Please; Complete Time: 10:23 dr5 01/27 09:41 Order name: IV Saline Lock; Complete Time: 09:53 dr5 01/27 09:41 Order name: Labs collected and sent; Complete Time: : dr5 01/27 09:48 Order name: EKG - Nurse/Tech; Complete Time: : dr5 EC: Rate is 67 beats/min. Rhythm is regular. QRS [place] is Normal. NE interval is normal at dr5 188 msec. QRS interval is normal at 130 msec. QT interval is normal at 408 msec. Clinical impression: Normal ECG and No evidence of ischemia. Administered Medications: 10:12 Drug: Ondansetron IVP 4 mg IVP once; over 2 minutes Route: IVP; Site: right wrist; zm 11:25 Follow up: Response: No adverse reaction zm 10:12 Drug: NS 0.9% IV 1000 ml IV at 1 bolus Per protocol; to be given as a bolus over 60 zm minutes Route: IV; Rate: 1 bolus; Site: right wrist; 11:25 Follow up: Response: No adverse reaction; IV Status: Completed infusion; IV Intake: zm 1000ml 10:13 Drug: morphine IVP or IV 4 mg IVP once over 4 mins Route: IVP; Infused Over: 4 mins; zm Site: right wrist; 11:25 Follow up: Response: No adverse reaction zm 11:15 CANCELLED (Inappropriate at this time): morphineor iv 4 mg IVP once over 4 mins dr5 11:22 Drug: HYDROmorphone IVP 0.5 mg IVP once Route: IVP; Site: right wrist; zm 11:26 Follow up: Response: No adverse reaction; Pain is decreased zm Disposition: 01/28 07:49 Co-signature as Attending Physician, Eric Weiss MD I agree with the assessment and margarito plan of care. Disposition Summary: 01/27/25 11:12 Discharge Ordered Notes: Location: Home dr5 Condition: Stable dr5 Diagnosis - Other cholelithiasis without obstruction dr5 Followup: dr5 - With: Emergency Department - When: As needed - Reason: Worsening of condition Followup: dr5 - With: Nikita Corea MD - When: 1 - 2 days - Reason: Thursday as scheduled at 0700 Discharge Instructions: - Discharge Summary Sheet dr5 - Cholelithiasis dr5 Forms: - Medication Reconciliation Form dr5 - Prescription Opioid Use dr5 - Patient Portal Instructions dr5 - Leadership Thank You Letter dr5 Prescriptions: - Zofran 4 mg Oral Tablet - take 1 tablet ORAL route every 12 hours As needed; 20 tablet; Refills: 0, dr5 Product Selection Permitted - Tramadol 50 mg Oral Tablet - take 1 tablet ORAL route every 8 hours as needed; 12 tablet; Refills: 0, dr5 Product Selection Permitted Signatures: Dispatcher [employer] EDMS Eric Weiss MD MD cha Martinez, Zaina, RN RN zm Kiara Pino RN RN kb3 Manuel Frazier FNP-Ajith ENGLANDP-Cdr5 Corrections: (The following items were deleted from the chart) 01/27 09:41 09:41 CBC+H.LAB.BRZ ordered. EDMS EDMS 09:41 09:41 COMPREHENSIVE METABOLIC PANEL+C.LAB.BRZ ordered. EDMS EDMS 09:41 09:41 LIPASE+C.LAB.BRZ ordered. EDMS EDMS 09:44 09:44 Abdomen Limited+US.RAD.BRZ ordered. EDMS EDMS 09:48 09:48 Troponin High Sensitivity+C.LAB.BRZ ordered. EDMS EDMS 11:15 11:11 morphine IVP or IV 4 mg IVP once over 4 mins ordered. dr5 dr5
--- NOTE | 2025-01-27 11:12 | ER ---
Nurse's Notes [facility] Name: Shannan Joseph Age: 29 yrs Sex: Female : 1995 Arrival Date: 01/27/2025 Time: 09:17 Bed 18 Private MD: Diagnosis: Other cholelithiasis without obstruction Presentation: 01/27 09:43 Chief complaint: Patient states: RUQ and epigastric pain and burning since last night. 3 Pt is scheduled for outpatient chuck on Thursday. Called Dr Corea who instructed her to proceed to ER. Coronavirus screen: Vaccine status: Patient reports receiving the 2nd dose of the covid vaccine. Client denies travel out of the [place] in the last 14 days. Ebola Screen: Patient negative for fever greater than or equal to 101.5 degrees Fahrenheit, and additional compatible Ebola Virus Disease symptoms Patient denies exposure to infectious person. Patient denies travel to an Ebola-affected area in the 21 days before illness onset. Initial Sepsis Screen: Does the patient meet any 2 criteria? No. Patient's initial sepsis screen is negative. Does the patient have a suspected source of infection? No. Patient's initial sepsis screen is negative. Risk Assessment: Do you want to hurt yourself or someone else? Patient reports no desire to harm self or others. Onset of symptoms was January 26, 2025 at 18:00. 09:43 Method Of Arrival: [facility] 09:43 Acuity: THEO 3 kb3 Triage Assessment: 09:46 General: Appears uncomfortable, Behavior is calm, cooperative. Pain: Complains of pain kb3 in epigastric area Pain radiates to right upper quadrant Pain currently is 9 out of 10 on a pain scale. Quality of pain is described as burning, sharp. GI: Reports upper abdominal pain, nausea. 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 - Infectious Disease History:: Denies. - Social history:: Smoking status: Patient denies any tobacco usage or history of. Patient uses street drugs, marijuana. Screenin:19 [facility] ED Fall Risk Assessment (Adult) History of falling in the last 3 months, zm including since admission No falls in past 3 months (0 pts) Confusion or Disorientation No (0 pts) Intoxicated or Sedated No (0 pts) Impaired Gait No (0 pts) Mobility Assist Device Used No (0 pt) Altered Elimination No (0 pt) Score/Fall Risk Level 0 - 2 = Low Risk Oriented to surroundings, Maintained a safe environment, Educated pt \T\ family on fall prevention, incl call for assistance when getting out of bed, Assessed \T\ reinforced patient's understanding of fall precautions, Hourly rounding (assess needs \T\ fall precautionary measures) done, Used ambulatory aids as needed (educated on \T\ assisted with), Used gait belt as appropriate. Abuse screen: Denies threats or abuse. Denies injuries from another. Nutritional screening: No deficits noted. Tuberculosis screening: No symptoms or risk factors identified. Assessment: 10:00 General: Appears in no apparent distress. uncomfortable, Behavior is calm, cooperative. zm Pain: Complains of pain in epigastric area and right upper quadrant Pain currently is 9 out of 10 on a pain scale. Neuro: Level of Consciousness is awake, alert, obeys commands, Oriented to person, place, time, situation. 10:00 Cardiovascular: Heart tones S1 S2 present Patient's skin is warm and dry. Respiratory: zm Airway is patent Respiratory effort is even, unlabored, Respiratory pattern is regular, symmetrical, Breath sounds are clear bilaterally. 11:23 Reassessment: Patient appears in no apparent distress at this time. Patient and/or zm family updated on plan of care and expected duration. Pain level reassessed. Patient is alert, oriented x 3, equal unlabored respirations, skin warm/dry/pink. Patient states symptoms have improved. Pain: Pain currently is 3 out of 10 on a pain scale. Vital Signs: 09:43 BP 144 / 77; Pulse 72; Resp 20; Pulse Ox 100% ; Weight 133.81 kg; Height 6 ft. 4 in. ; kb3 Pain 9/10; 11:23 BP 143 / 76; Pulse 75; Resp 17; Temp 98.3; Pulse Ox 100% on R/A; Pain 3/10; zm 09:43 Body Mass Index 35.91 (133.81 kg, 193.04 cm) kb3 09:43 Pain Scale: Adult kb3 11:23 Pain Scale: Adult zm [facility] Coma Score: 11:23 Eye Response: spontaneous(4). Motor Response: obeys commands(6). Verbal Response: zm oriented(5). Total: 15. ED Course: 09:20 Patient arrived in ED. mr 09:20 Manuel Frazier, [place]5 09:20 Eric Weiss MD is Attending Physician. dr5 09:42 Lorraine Corea, RN is Primary Nurse. zm 09:46 Triage completed. kb3 09:46 Arm band placed on right wrist. kb3 09:53 CBC with Diff Sent. em1 09:53 Troponin High Sensitivity Sent. em1 09:53 CMP Sent. em1 09:53 Lipase Sent. em1 09:53 Initial lab(s) drawn, by wv, sent to lab. Inserted saline lock: 20 gauge in right em1 wrist, using aseptic technique. Blood collected. Flushed with 10 mL NS. 10:00 Patient has correct armband on for positive identification. Bed in low position. Side zm rails up X 1. Adult w/ patient. Provided Education on: call light use. 10:00 Client placed on continuous cardiac and pulse oximetry monitoring. NIBP monitoring zm applied. Door closed. Noise minimized. Lights dimmed. Warm blanket given. Verbal reassurance given. 10:12 US Abdomen Limited: RUQ Please In Process Unspecified. EDMS 10:22 EKG done, by ED staff, reviewed by Eirc Weiss MD. zm 11:12 Nikita Corea MD is Referral Physician. dr5 11:23 No provider procedures requiring assistance completed. IV discontinued, intact, zm bleeding controlled, No redness/swelling at site. Pressure dressing applied. Administered Medications: 10:12 Drug: Ondansetron IVP 4 mg IVP once; over 2 minutes Route: IVP; Site: right wrist; zm 11:25 Follow up: Response: No adverse reaction zm 10:12 Drug: NS 0.9% IV 1000 ml IV at 1 bolus Per protocol; to be given as a bolus over 60 zm minutes Route: IV; Rate: 1 bolus; Site: right wrist; 11:25 Follow up: Response: No adverse reaction; IV Status: Completed infusion; IV Intake: zm 1000ml 10:13 Drug: morphine IVP or IV 4 mg IVP once over 4 mins Route: IVP; Infused Over: 4 mins; zm Site: right wrist; 11:25 Follow up: Response: No adverse reaction zm 11:15 CANCELLED (Inappropriate at this time): morphineor iv 4 mg IVP once over 4 mins dr5 11:22 Drug: HYDROmorphone IVP 0.5 mg IVP once Route: IVP; Site: right wrist; zm 11:26 Follow up: Response: No adverse reaction; Pain is decreased zm Medication: 10:21 VIS not applicable for this client. zm Intake: 11:25 IV: 1000ml; Total: 1000ml. zm Outcome: 11:12 Discharge ordered by . dr5 11:23 Discharged to home ambulatory, with family, zm 11:23 Condition: stable 11:23 Discharge instructions given to patient, family, Instructed on discharge instructions, follow up and referral plans. no drinking with medication, no driving heavy equipment, medication usage, safety practices, Demonstrated understanding of instructions, follow-up care, medications, Prescriptions given X 2, 11:27 Patient left the ED. Signatures: Dispatcher [employer] EDMS Ina Leyva, Reg Reg René Gomez em1 Lorraine Corea, Kiara Stack RN, RN RN kb3 Manuel Frazier, INTERNATIONAL COORDINATOR-C INTERNATIONAL COORDINATOR-Cdr5
[2025-01-27] MEDS ORDERED: HYDROMORPHONE HCL 0.5 MG/0.5 ML INJ ONE (11:18)
[2025-01-27 13:14] VITALS: O2SAT 100
[2025-01-27 13:20] VITALS: BP 143/76; TEMP 98.3
== END 2025-01-27 11:27 | disposition home or self-care (01) ==
LOC: ER 09:17
DX: K80.80 Other cholelithiasis without obstruction (principal); I10 Essential (primary) hypertension; F12.90 Cannabis use, unspecified, uncomplicated
CPT/HCPCS: 96361; 93005; 85025; 36415; 84484; 83690; 80053; 76705; 96375; 96374; 99284; J1171; J2405; J7030

== ENCOUNTER 2025-01-30 07:58 | Day surgery (SDC) | payer BC ==
[2025-01-30] MEDS ORDERED: FENTANYL CITR 100 MCG/2 ML ONE (08:44)
[2025-01-30] MEDS ORDERED: MIDAZOLAM HCL 2 MG/2 ML INJ ONE (08:44)
[2025-01-30] MEDS ORDERED: LIDOCAINE 1% MPF 5 ML VIAL ONE (08:44)
[2025-01-30] MEDS ORDERED: ONDANSETRON 4 MG/2 ML VIAL ONE (08:44)
[2025-01-30] MEDS ORDERED: ROCURONIUM 50 MG/5 ML VIAL IV ONE (08:44)
[2025-01-30] MEDS: Ringers Lactate 1,000 ML IV ONE (08:50)
[2025-01-30] MEDS: CEFOXITIN SODIUM 1 GM/VIAL ONE (10:00)
[2025-01-30] MEDS ORDERED: KETOROLAC 30 MG/ML INJ ONE (10:02)
[2025-01-30] MEDS ORDERED: GLYCOPYRROLATE 0.2 MG/ML SYR ONE ×3 (10:14→10:35)
[2025-01-30] MEDS ORDERED: NEOSTIGMINE 1 MG/ML -10 ML VIAL ONE (10:25)
--- NOTE | 2025-01-30 10:28 | P.BOP ---
Preoperative diagnosis: acute cholecystitis, symptomatic cholelithiasis Postoperative diagnosis: same Primary procedure: Laparoscopic cholecystectomy Estimated blood loss: <10cc Specimen: gb Findings: as above Anesthesia: General Complications: None Transferred to: Recovery Room Condition: Good
[2025-01-30] MEDS: Mastisol Adhesive Liq ONE (10:31)
[2025-01-30] MEDS ORDERED: MORPHINE 10 MG/ML VIAL ONE (10:31)
[2025-01-30 10:55] VITALS: O2SAT 100
[2025-01-30] MEDS: HYDROMORPHONE HCL 1 MG/ML INJ ONE ×2 (10:59→11:09)
[2025-01-30] MEDS: FENTANYL CITR 100 MCG/2 ML ONE (11:22)
[2025-01-30] MEDS: HYDROCODONE/APAP 10/325 TAB ONE (12:21)
[2025-01-30 12:59] VITALS: BP 125/58; TEMP 97.5
[2025-01-30 18:55] LABS: Urine Specific Gravity/Preg 1.025 (1.005-1.030)
--- NOTE | 2025-01-30 22:39 | OP ---
Date of Procedure: 01/30/2025 Surgeon: Nikita Corea MD Preoperative Diagnoses: Acute cholecystitis, symptomatic cholelithiasis. Postoperative Diagnoses: Acute cholecystitis, symptomatic cholelithiasis. Procedure: Laparoscopic cholecystectomy. Estimated Blood Loss: Less than 10 cc. Specimen: Gallbladder. Anesthesia: General plus local. Indications: This is a case of a 29-year-old patient who comes to us with acute cholecystitis, sympt omatic cholelithiasis with multiple episode of abdominal pain and frequent visits to the ER. She wan ts to address this issue right now. Also, she signed a consent for laparoscopic, possible open chuck cystectomy with benefits, alternatives, and risks fully explained, which include, but not limited to infection, bleeding, damage to adjacent structures, anesthesia complication, choledocholithiasis, sony e leak, pancreatitis, DE, and even . She also understands this may not relieve symptoms. She m ight need more than one surgical intervention. She understood, signed a consent. Procedure In Detail: The patient was brought to the operating room, placed in supine position, anest hesia was induced without complication. Abdominal area was prepped and draped in a sterile fashion. Marcaine 0.5% was injected for local anesthetic followed by sharp incision of the skin in the infrau mbilical region. Incision was carried down to fascia, which was opened under direct vision. Periton eum was encountered, opened under direct vision. Vicryl #1 was placed inside the fascia. Elaine tro car was carefully introduced, pneumoperitoneum was obtained. I placed 3 more trocars, 5 mm each one of them, 1 in epigastric area, 2 in the right upper quadrant using same technique, which consisted of local anesthetic, sharp incision of the skin and introduction of the trocars under direct vision. T his allowed me to put a grasper in the fundus of the gallbladder, another grasper in the infundibulum , retracted the gallbladder in the inferolateral fashion exposing the triangle of [place], obtaining cr itical view. The cystic duct and cystic artery were clearly isolated, freed circumferentially, and a connection between those and the gallbladder was clearly identified. I proceeded to ligate those by using at least 3 clips proximal, 1 clip distal, ligation in middle. Same was done with the cystic a rtery. No bile leak, no bleeding. The gallbladder was removed from liver using Bovie cauterizer and removed from abdominal cavity using EndoCatch through the umbilical incision. The area was inspecte d once again. No bile leak, no bleeding. At that moment, I proceeded to remove the trocars under di rect vision, deflated pneumoperitoneum, closed the fascia with #1 Vicryl, irrigated with subcutaneous tissue, closed with 3-0 Monocryl, and the skin in subcuticular fashion with 3-0 Monocryl and Steri-S trips on top. Sponge count, instrument counts were correct. The patient tolerated the procedure wel l. The patient tolerated the procedure well. The patient was sent to recovery in stable condition. MCKINLEY/NASEEM Voice ID: [id number] Report ID: [id number]
== END 2025-01-30 12:53 | disposition home or self-care (01) ==
LOC: OR 07:58
PROVIDERS: ATTEND Surgery
PROC: 0FT44ZZ Resection of Gallbladder, Percutaneous Endoscopic Approach (ICD-10-PCS; principal; 2025-01-30 10:15)
DX: K80.10 Calculus of gallbladder with chronic cholecystitis without obstruction (principal); R10.9 Unspecified abdominal pain; I10 Essential (primary) hypertension
CPT/HCPCS: 93005; 36415; 81025; 88304; 83690; 47562; J1885; J2704; J2710; J2003; J2250; J3010 ×2; J1100; J1171 ×2; J0694; J2405; J7120